=== PATIENT | female | born 1950 | race Caucasian/White ===

== ENCOUNTER 2022-02-21 13:36 | Emergency (ER) | payer OTHER ==
[~2022-02-21] VITALS: Ht 175.3 cm; Wt 102.1 kg
[2022-02-21] MEDS ORDERED: CIPRO500 MG (17:17)
== END 2022-02-21 22:14 | disposition left against medical advice (07) ==
LOC: ER 13:36
DX: R10.9 Unspecified abdominal pain (principal)